=== PATIENT | male | born 1960 | race Caucasian/White ===

== ENCOUNTER 2022-01-29 14:44 | Emergency (ER) | payer BC, OTHER ==
[~2022-01-29] VITALS: Ht 182.9 cm; Wt 117.9 kg
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
[2022-01-29] MEDS ORDERED: IBUPROFEN 600 MG TABLET PO ONE (15:00)
[2022-01-29] MEDS ORDERED: ACETAMINOPHEN ES 500 MG TABLET PO ONE (15:00)
[2022-01-29] MEDS ORDERED: IBUPROFEN 600 MG TABLET ONE (15:16)
[2022-01-29] MEDS ORDERED: ACETAMINOPHEN ES 500 MG TABLET ONE (15:16)
--- NOTE | 2022-01-29 17:06 | NUR ---
Patient discharged to home in stable condition. Written and verbal after care instructions given. Patient verbalizes understanding of instruction.
[2022-01-29 17:08] VITALS: BP 138/94
== END 2022-01-29 16:59 | disposition home or self-care (01) ==
LOC: ER 14:46
DX: S20.219A Contusion of unspecified front wall of thorax, initial encounter (principal); I10 Essential (primary) hypertension; V49.9XXA Car occupant (driver) (passenger) injured in unspecified traffic accident, initial encounter; Y93.89 Activity, other specified; Y92.89 Other specified places as the place of occurrence of the external cause; Y99.8 Other external cause status
CPT/HCPCS: 71045-TC